=== PATIENT | male | born 1975 | race Caucasian/White ===

== ENCOUNTER 2024-05-19 13:06 | Emergency (ER) | payer OTHER ==
--- NOTE | 2024-05-19 13:30 | ED ---
General Adult HPI - General Chief complaint: ENT Stated complaint: object in throat Time Seen by Provider: 05/19/24 13:15 Source: patient, RN notes reviewed, old records reviewed Mode of arrival: ambulatory Limitations: no limitations - History of Present Illness Initial comments: This is a 48-year-old male who presents to the emergency department complaining of having some meat from eating ribs stuck in his throat since last night patient has been unable to swallow saliva all night long. Patient denies any difficulty breathing or shortness of breath. Patient states he occasionally has similar symptoms but usually passes. - Related Data Allergies Allergy/AdvReac Type Severity Reaction Status Date / Time hazelnut AdvReac Cough Verified 05/19/24 13:17 Review of Systems ROS Statement: Those systems with pertinent positive or pertinent negative responses have been documented in the HPI. ROS Other: All systems not noted in ROS Statement are negative. Past Medical History Past Medical History: No Reported History History of Any Multi-Drug Resistant Organisms: None Reported Past Surgical History: No Surgical Hx Reported Past Psychological History: No Psychological Hx Reported Smoking Status: Never smoker Past Alcohol Use History: None Reported Past Drug Use History: None Reported General Exam - General Exam Comments Initial Comments: GENERAL: Patient is well-developed and well-nourished. Patient is nontoxic and well- hydrated and is in mild distress. ENT: Neck is soft and supple. No significant lymphadenopathy is noted. Oropharynx is clear. Moist mucous membranes. Neck has full range of motion without eliciting any pain. EYES: The sclera were anicteric and conjunctiva were pink and moist. Extraocular movements were intact and pupils were equal round and reactive to light. Eyelids were unremarkable. PULMONARY: Unlabored respirations. Good breath sounds bilaterally. No audible rales rhonchi or wheezing was noted. CARDIOVASCULAR: There is a regular rate and rhythm without any murmurs gallops or rubs. ABDOMEN: Soft and nontender with normal bowel sounds. SKIN: Skin is clear with no lesions or rashes and otherwise unremarkable. NEUROLOGIC: Patient is alert and oriented x3. Cranial nerves II through XII are grossly intact. Motor and sensory are also intact. Normal speech, volume and content. Symmetrical smile. MUSCULOSKELETAL: Normal extremities with adequate strength and full range of motion. LYMPHATICS: No significant lymphadenopathy is noted PSYCHIATRIC: Normal psychiatric evaluation. Limitations: no limitations Course Vital Signs 05/19/24 13:12 Temperature 97.9 F Pulse Rate 96 Respiratory 20 Rate Blood Pressure 148/82 O2 Sat by Pulse 97 Oximetry Medical Decision Making - Medical Decision Making Was pt. sent in by a medical professional or institution (SANGEETA Middleton, CLINICAL SUPPORT MANAGER, urgent care, hospital, or senior living...) When possible be specific @ -No Did you speak to anyone other than the patient for history (EMS, parent, family, police, friend...)? What history was obtained from this source @ -No Did you review nursing and triage notes (agree or disagree)? Why? @ -I reviewed and agree with nursing and triage notes Were old charts reviewed (outside hosp., previous admission, EMS record, old EKG, old radiological studies, urgent care reports/EKG's, senior living records)? Report findings @ -No old charts were reviewed Differential Diagnosis? @ -Globus hystericus, esophagitis, esophageal foreign body, this is not an all- inclusive list EKG interpreted by me (3pts min.). @ -As above X-rays interpreted by me (1pt min.). @ -None done CT interpreted by me (1pt min.). @ -None done U/S interpreted by me (1pt. min.). @ -None done What testing was considered but not performed or refused? (CT, X-rays, U/S, labs)? Why? @ -None What meds were considered but not given or refused? Why? @ -None Did you discuss the management of the patient with other professionals (professionals i.e. SANGEETA Middleton, CLINICAL SUPPORT MANAGER, lab, RT, psych nurse, psychotherapist social worker, industrial electrician journeyman, teacher, juvenile justice officer, classified advertising manager)? Give summary @ -I spoke with Dr. Johnson and she agreed to take the patient to the endoscopy lab to remove any foreign body Was smoking cessation discussed for >3mins.? @ -No Was critical care preformed (if so, how long)? @ -No Were there social determinants of health that impacted care today? How? (Homelessness, low income, unemployed, alcoholism, drug addiction, transportation, low edu. Level, literacy, decrease access to med. care, custodial, rehab)? @ -No Was there de-escalation of care discussed even if they declined (Discuss DNR or withdrawal of care, Hospice)? DNR status @ -No What co-morbidities impacted this encounter? (DM, HTN, Smoking, COPD, CAD, Cancer, CVA, ARF, Chemo, Hep., AIDS, mental health diagnosis, sleep apnea, morbid obesity)? @ -None Was patient admitted / discharged? Hospital course, mention meds given and route, prescriptions, significant lab abnormalities, going to OR and other pertinent info. @ -Patient was given glucagon Reglan Valium and nitroglycerin and this was unsuccessful so I repeated glucagon and nitroglycerin and it still did not help the foreign body moved to the throat so Dr. Johnson will take the patient to the endoscopy lab Undiagnosed new problem with uncertain prognosis? @ -No Drug Therapy requiring intensive monitoring for toxicity (Heparin, Nitro, Insulin, Cardizem)? @ -No Were any procedures done? @ -No Diagnosis/symptom? @ -Esophageal foreign body Acute, or Chronic, or Acute on Chronic? @ -Acute Uncomplicated (without systemic symptoms) or Complicated (systemic symptoms)? @ -Complicated Side effects of treatment? @ -No Exacerbation, Progression, or Severe Exacerbation? @ -No Poses a threat to life or bodily function? How? (Chest pain, [place], [place], pneumonia, PE, COPD, DKA, ARF, appy, cholecystitis, CVA, Diverticulitis, Homicidal, Suicidal, threat to staff... and all critical care pts) @ -No Disposition Clinical Impression: Esophageal foreign body Disposition: HOME SELF-CARE Instructions (If sedation given, give patient instructions): Esophageal Foreign Body (ED) Is patient prescribed a controlled substance at d/c from ED?: No Referrals: None,Stated [Primary Care Provider] - 1-2 days Time of Disposition: 15:01
[2024-05-19] MEDS: METOCLOPRAMIDE 5 MG/ML 2 ML VIAL IVP STA (13:39)
[2024-05-19] MEDS: NITROGLYCERIN SL TABS 0.4 MG TAB SUBLINGUAL STA ×2 (13:41→14:11)
[2024-05-19] MEDS: GLUCAGON 1 MG/ML VIAL IVP STA ×2 (13:41→14:11)
[2024-05-19] MEDS: SODIUM CHLORIDE 0.9% 1,000 ML IV ONE (13:45)
[2024-05-19 15:26] VITALS: TEMP 98.9
[2024-05-19] MEDS ORDERED: LIDOCAINE 1% INJ 10MG/ML (20 ML MDV) ONE (15:30)
[2024-05-19] MEDS ORDERED: MIDAZOLAM 2 MG/2 ML VIAL ONE (15:30)
[2024-05-19] MEDS ORDERED: ETOMIDATE 2 MG/ML 10 ML VIAL ONE (15:30)
[2024-05-19] MEDS ORDERED: KETAMINE HCL IN 0.9 % NACL 50 MG/5 ML SYRINGE ONE (15:30)
[2024-05-19] MEDS: SODIUM CHLORIDE 0.9% 500 ML 500 ML IV ONE (16:03)
--- NOTE | 2024-05-19 16:05 | P.CONS ---
History of Present Illness - Reason for Consult Consult date: 05/19/24 - Chief Complaint acute dysphagia - History of Present Illness Patient is a 48-year-old pleasant white male came to emergency room this afternoon with acute food impaction. He was eating ribs last night and could not swallow any further. He has been having intermittent dysphagia to solids for the last 2 years duration. These episodes happen once or twice a week but resolved spontaneously. He denies any odynophagia.. He does have occasional heartburn and takes Pepcid as needed. Review of Systems REVIEW OF SYSTEMS: CARDIOPULMONARY: No chest pain or shortness of breath. GENITOURINARY: No dysuria or hematuria. MUSCULOSKELETAL: Unremarkable. SKIN: Unremarkable. ENDOCRINE: Unremarkable. PSYCHIATRIC: Unremarkable. NEUROLOGY: Unremarkable. ENT: Vision unremarkable. CONSTITUTIONAL: No recent weight loss. No fever, chills, night sweats. Past Medical History Past Medical History: No Reported History History of Any Multi-Drug Resistant Organisms: None Reported Past Surgical History: No Surgical Hx Reported Past Psychological History: No Psychological Hx Reported Smoking Status: Never smoker Past Alcohol Use History: None Reported Past Drug Use History: None Reported Medications and Allergies Allergies Allergy/AdvReac Type Severity Reaction Status Date / Time hazelnut AdvReac Cough Verified 05/19/24 13:17 Physical Exam Vitals: Vital Signs Temp Pulse Resp BP Pulse Ox 05/19/24 15:26 98.9 F 84 18 129/79 99 05/19/24 13:12 97.9 F 96 20 148/82 97 Intake and Output 05/19/24 05/19/24 05/19/24 06:59 14:59 22:59 Other: Weight 172.365 kg HEENT examination unremarkable Conjunctiva pink, sclera anicteric Oral cavity no lesions Neck no JVD L4 lodgment Chest clear to auscultation Heart regular rate and rhythm Abdomen soft pulses are positive no organomegaly Extremities no pedal edema Neuro alert and oriented x 3 no focal deficits Assessment and Plan (1) Esophageal foreign body Narrative/Plan: Patient had an episode of acute food impaction when he was eating dinner last night. He could not swallow any further. Came to the emergency room. He is not able to handle his own secretions at this time. Has been having intermittent dysphagia to solids on and off for the last 1 to 2 years duration but never this bad. Status: Acute Code(s): T18.108A - UNSP FOREIGN BODY IN ESOPHAGUS CAUSING OTH INJURY, INIT SNOMED Code(s): 49140398 Plan: Scheduled for an EGD with the foreign body removal. Discussed with the patient his present complications and he is agreeable to it. Time with Patient: Less than 30
--- NOTE | 2024-05-19 16:08 | P.PCN ---
Date of Procedure: 05/19/24 Procedure(s) Performed: BRIEF HISTORY: Patient is a 48-year-old, pleasant, white male came to the emergency room with acute food impaction. Has been having intermittent dysphagia solids on and off for the last 1 to 2 years duration. He was eating dinner last night and could not swallow any further. His scalp and upper endoscopy in the emergency basis PROCEDURE PERFORMED: Esophagogastroduodenoscopy with foreign body removal and biopsy . PREOPERATIVE DIAGNOSIS: Acute food impaction. IV sedation per anesthesia. PROCEDURE: After informed consent was obtained, the patient was brought into the endoscopy unit. IV sedation was administered by Anesthesia under continuous monitoring. Initially the Olympus GIF-140 video endoscope was inserted into the mouth. Esophagus intubated without any difficulty. It was gradually advanced into the mid esophagus and there was a large piece of food bolus that was impacted. Using a tripod I was able to gently break that into small pieces and pull out the food bolus out of the mouth. The scope was then advanced into the mouth and esophagus intubated without any difficulty and was gradually advanced into the stomach and duodenum and carefully examined. The bulb and the second part of the duodenum appeared normal. The scope at this time was withdrawn to the stomach, adequately insufflated with air, and upon careful examination, mucosa of the antrum, body, cardia and the fundus appeared normal. The scope was then withdrawn into the esophagus. The GE junction was located at 39 cm from the incisors. Small hiatal hernia noted. The entire esophagus had multiple superficial mucosal rings and there was a esophageal stricture noted in the mid esophagus at 28 to 32 cm from the incisors where the food bolus was impacted. Multiple biopsies were done from the mid and distal esophagus to evaluate for eosinophilic esophagitis patient tolerated the procedure well. IMPRESSION: 1. Mid esophageal stricture with impacted food bolus status post removal as described above. 2. Multiple superficial mucosal rings involving the mid and distal esophagus w ith thickened mucosal folds suspicious for eosinophilic esophagitis s/p multiple biopsies 3. Small hiatal hernia. RECOMMENDATIONS: The findings of this examination were discussed with the patient as well as his family. He was advised to follow-up with the biopsy results. He will remain on soft diet today. Start on omeprazole 20 mg daily. Follow-up in the office in 1 week.
[2024-05-19 16:11] VITALS: RESP 16
[2024-05-19 16:20] VITALS: BP 155/88; PULSE 79
== END 2024-05-19 15:29 | disposition home or self-care (01) ==
LOC: EC 13:06
CPT/HCPCS: 43239; 43247; 88305; 88312; 96361; 96374; 96375; 96376; 99284